=== PATIENT | male | born 1990 | race Caucasian/White ===

== ENCOUNTER 2019-08-10 08:56 | Emergency (ER) | payer SELFPAY ==
[~2019-08-10] VITALS: Ht 185.4 cm; Wt 72.7 kg
[2019-08-10 08:59] VITALS: Ht 185.4 cm; Wt 72.7 kg
[2019-08-10] MEDS ORDERED: HYDROCODON-ACE1 EA10 PO (09:29)
[2019-08-10] MEDS ORDERED: VALIUM10 MG PO (09:29)
[2019-08-10 10:19] VITALS: BP 115/77
== END 2019-08-10 10:25 | disposition home or self-care (01) ==
LOC: D.ER 08:56
DX: S39.012A Strain of muscle, fascia and tendon of lower back, initial encounter (principal); X58.XXXA Exposure to other specified factors, initial encounter; M54.10 Radiculopathy, site unspecified